=== PATIENT | male | born 1965 | race Caucasian/White ===

== ENCOUNTER 2018-11-06 19:02 | Emergency (ER) | payer OTHER, SELFPAY ==
[2018-11-06 19:05] VITALS: BP 115/80; PULSE 82; RESP 18; TEMP 36.4; O2SAT 99
[2018-11-06 19:28] VITALS: BP 115/80; PULSE 85; RESP 18; O2SAT 95
--- NOTE | 2018-11-06 19:33 | DI.RAD.S_ITS ---
PROCEDURE: XR CHEST 1V INDICATIONS: chest pain TECHNIQUE: One view of the chest was acquired. COMPARISON: None. FINDINGS: Surgical changes and devices: None. Lungs and pleura: Lungs are clear. No pleural effusions or pneumothorax. Mediastinum: Mediastinal contours appear normal. Heart size is normal. Bones and chest wall: No suspicious bony lesions. Overlying soft tissues appear unremarkable. IMPRESSION: No acute cardiopulmonary pathology. Dictated by: Christiano Bess M.D. on 11/06/2018 at 20:07 Approved by: Christiano Bess M.D. on 11/06/2018 at 20:08
[2018-11-06 19:38] LABS: Add Manual Diff / Slide Review NO; Basophils Absolute Auto 100 /uL (0-100); Basophils Percent Auto 1.4 % (0-2); Eosinophils Absolute Auto 500 /uL (0-450); Eosinophils Percent Auto 7.2 % (2-4); Hematocrit 44.9 % (41-53); Hemoglobin 15.5 g/dL (13.5-17.5); Lymphocytes Absolute Auto 2700 /uL (1100-4500); Lymphocytes Percent Auto 39.2 % (25-40); Mean Corpuscular HGB Conc 34.5 % (30-36); Mean Corpuscular Hemoglobin 30.2 PG (26-34); Mean Corpuscular Volume 87.5 fL (80-100); Monocytes Absolute Auto 500 /uL (0-900); Monocytes Percent Auto 7.4 % (3-14); Neutrophils Absolute Auto 3100 /uL (1500-7000); Neutrophils Percent Auto 44.8 % (50-75); Platelet Count 238 X10^3/uL (150-400); Red Blood Cell Count 5.13 X10^6/uL (4.5-5.9); Red Cell Distribution Width 12.8 % (11.6-14.8); White Blood Cell Count 6.8 X10^3/uL (4.5-11.0)
[2018-11-06 19:40] LABS: Prothrombin Time 11.6 SECONDS (10.1-12.7)
[2018-11-06 19:42] LABS: PTT Partial Thromboplastin Tim 35 SECONDS (26.4-36.2)
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
[2018-11-06 19:44] LABS: Alanine Aminotransferase 29 IU/L (21-72); Albumin 4.6 g/dL (3.5-5.0); Albumin Globulin Ratio 1.4 (1.0-2.8); Alkaline Phosphatase 69 U/L (38-126); Aspartate Aminotransferase 28 IU/L (17-59); BUN Creatinine Ratio 22.2 (6-22); Bilirubin Total 1.1 mg/dL (0.2-1.3); Blood Urea Nitrogen 20 mg/dL (9-20); Calcium 9.6 mg/dL (8.4-10.2); Carbon Dioxide 30 mmol/L (22-32); Chloride 99 mmol/L (98-107); Creatine Kinase 85 U/L (55-170); Estimated Glomerular Filt Rate > 60.0 mL/min (>60); Globulin 3.3 g/dL (1.7-4.1); Glucose 95 mg/dL (70-100); HEMOLYSIS 41 (0-50); Lipase 79 U/L (23-300); Potassium 4.4 mmol/L (3.4-5.1); Sodium 139 mmol/L (137-145); Total Protein 7.9 g/dL (6.3-8.2)
[2018-11-06] MEDS: KETOROLAC 60 MG/2 ML VIAL 30 MG IV (19:53)
[2018-11-06] MEDS: ACETAMINOPHEN 325 MG TABLET 650 MG PO (19:53)
[2018-11-06 19:55] LABS: Troponin I < 0.012 ng/mL (0.01-0.034)
[2018-11-06 20:00] VITALS: BP 132/84; PULSE 73; RESP 14; O2SAT 96
--- NOTE | 2018-11-06 20:33 | DI.RAD.S_ITS ---
PROCEDURE: XR SHOULDER LT MIN 2V INDICATIONS: L shoulder pain TECHNIQUE: Pre-views of the shoulder were acquired. COMPARISON: None. FINDINGS: Bones: Mild to moderate acromioclavicular joint and glenohumeral joint osteoarthritis is seen. No fractures or dislocations. No suspicious bony lesions. Visualized ribs appear intact. Soft tissues: No suspicious soft tissue calcifications. IMPRESSION: Mild to moderate left shoulder joint osteoarthritis. No acute fracture or dislocation. Dictated by: Christiano Bess M.D. on 11/06/2018 at 21:01 Approved by: Christiano Bess M.D. on 11/06/2018 at 21:01
[2018-11-06 20:51] VITALS: BP 116/78; PULSE 71; O2SAT 96
[2018-11-06 21:00] VITALS: BP 112/78; PULSE 73; RESP 12; O2SAT 95
[2018-11-06 22:00] VITALS: BP 114/74; PULSE 69; RESP 13; O2SAT 96
[2018-11-06] MEDS: CYCLOBENZAPRINE 10 MG PREPACK 1 BOTTLE MISC (22:03)
== END 2018-11-06 22:29 | disposition home or self-care (01) ==
PROVIDERS: Emergency Provider Nurse Practitioner Family; Family Provider Family Medicine; PCP Family Medicine
DX: M79.602 Pain in left arm (principal); M54.9 Dorsalgia, unspecified; Z87.898 Personal history of other specified conditions
CPT/HCPCS: 36591; 71045; 73030; 80053; 82550; 83690; 84484; 85025; 85610; 85730; 93005; 96374; 99283; 99285; J1885

== ENCOUNTER → 2020-04-01 17:44 | Outpatient (CLI) | payer OTHER, SELFPAY ==
--- NOTE | 2020-04-02 | DI.RAD.S_ITS ---
PROCEDURE: XR BONE LENGTH SCANOGRAM INDICATIONS: Bone Length Study TECHNIQUE: A single frontal standing view of both lower extremities acquired, with measuring ruler situated between the legs. COMPARISON: None. FINDINGS: Right: Total leg length is 83.5 cm. Left: Total leg length is 84.6 cm. IMPRESSION: Left leangth as measured. Dictated by: Antonio Hamlin M.D. on 04/03/2020 at 8:52 Approved by: Antonio Hamlin M.D. on 04/03/2020 at 8:56
== END ==
PROVIDERS: Family Provider Family Medicine; PCP Family Medicine; Referring Provider Family Medicine; Visit Provider Family Medicine
DX: M21.769 Unequal limb length (acquired), unspecified tibia and fibula (principal)

== ENCOUNTER → 2020-04-02 17:47 | Outpatient (CLI) | payer OTHER, SELFPAY ==
--- NOTE | 2020-04-02 18:03 | DI.RAD.S_ITS ---
This report includes an Addendum and supersedes previous reports for this exam. PROCEDURE: XR BONE LENGTH SCANOGRAM INDICATIONS: Bone Length Study TECHNIQUE: A single frontal standing view of both lower extremities acquired, with measuring ruler situated between the legs. COMPARISON: None. FINDINGS: Right: Total leg length is 83.5 cm. Left: Total leg length is 84.6 cm. IMPRESSION: Leg length as measured. Dictated by: Antonio Hamlin M.D. on 04/03/2020 at 8:52 Approved by: Antonio Hamlin M.D. on 04/03/2020 at 8:56 ADDENDUM: Typograophic error(s) corrected (underlined). Dictated by: Antonio Hamlin M.D. on 04/03/2020 at 9:15 Approved by: Antonio Hamlin M.D. on 04/03/2020 at 9:16
== END ==
PROVIDERS: Family Provider Family Medicine; PCP Family Medicine; Referring Provider Family Medicine; Visit Provider Family Medicine
DX: M21.769 Unequal limb length (acquired), unspecified tibia and fibula (principal)
CPT/HCPCS: 77073

== ENCOUNTER 2023-03-23 08:15 | Outpatient (RCR) | payer OTHER, SELFPAY ==
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
--- NOTE | 2023-02-23 16:22 | PT.OPPOC ---
Physical, Occupational & Speech Therapy At [facility] Current Diagnoses Lesion of sciatic nerve, right lower limb (02/23/23) Stiffness of unspecified hip, not elsewhere classified (02/23/23) Other spondylosis, lumbar region (02/23/23) Visit Care Team Role Provider Type Juan Corey MD Attending Provider Non-Staff Family Provider Primary Care Provider Referring Provider Specialty: Internal Medicine Address: [address] [place], [place] [address], [place], [address] Email: Plan Of Care PT-OP-T Assessment and Plan Start: 02/23/23 07:59 Freq: Status: Active Protocol: Document 02/23/23 08:45 [facility] (Rec: 02/23/23 13:15 [facility] [id number]) Physical Therapy Assessment Rehab Potential Rehabilitation Potential Good Evaluation Complexity Number of Personal Factors/Comorbidities 0 Number of Body Systems Impaired 1-2 Clinical Presentation at Evaluation Stable Impairments Impairments Activity Tolerance,Functional Activities,Functional Mobility ,Pain,Posture,ROM,Soft Tissue Mobility,Strength Goals 3 Impairment Pt lacks a home program for iliopsoas, adductor, and quad flexibility Short Term Goal (STG) Ravi is educated in a HEP for iliopsoas, adductor, and quad flexibility STG Duration 4 weeks 2 Impairment + Steve test on the right and c/o right sided sacral pain with prone knee flexion test Case Manager Goal (LTG) With manual therapy techniques and stretching Ravi presents with a negative steve test and no longer has pain with prone knee flexion test LTG Duration 8 weeks 1 Impairment pain at the right ischium made worse with sitting and across the low back rated 6/10 Shelter Goal (LTG) Ravi has a overall reduction in pain in both the low back and ischium and sitting tolerance is improved LTG Duration 8 weeks Assessment Summary Assessment Ravi is a 57 year old male referred to PT with 6 year history of right sided buttock pain that came on with an insidious onset approx 5-6 years ago. He notes pain at the right ischium that comes on with sitting. Once his pain is aggravated it will then include his low back. He notes recently he is experiencing low back discomfort at night when trying to sleep. He has tried previous PT and has had approx 7 spinal and SI injections. He has not gotten any relief with any of these. With evaluation I was not able to recreate any pain at the ischium and pt describes his pain as skin irritation as if he has gotten a rug burn when he experiences it. I was able to reproduce pain at the sacrum with right sided prone knee extension and steve test . He is positive for quad and iliopsoas and adductor tightness on the right and has a positive steve test on the right. He is much tighter on the right side as compared to the left side. There is tenderness to palpation at the right PSIS in prone and the base of the sacrum. It is possible his iliopsoas tightness is adding to compression in his back contributing to the referral of pain to the ischium. Without being able to reproduce his symptoms it is difficult to tell. Treatment at this time will focus on lengthening the iliopsoas, adductors, and quad on the right Physical Therapy Plan Frequency and Duration Frequency of Treatment 1x/Week Duration of treatment (weeks) 8 Plan of Care Start Date 02/23/23 Plan of Care End Date 04/20/23 Therapeutic Interventions Therapeutic Interventions Home Exercise Program,Joint Mobilizations,Manual Therapy, Neuromuscular Re-education, Self-Care/Home Management,Soft Tissue Mobilization, Therapeutic Exercises Next Visit Focus/Plan Next Note Type Treatment Note Next Visit Plan Begin working on iliopsoas and adductor release on the right side, review stretches given today Plan of Care Dates Plan of Care Start Date 02/23/23 Plan of Care End Date 04/20/23 Electronically Signed by: Kristal River, PT 02/24/23 [id number] If you are in agreement with this Plan of Care, please return a signed and dated copy. I have reviewed this Plan of Care and certify that the skilled therapy services above are required to meet the patient?s needs. Physician Signature Date Printed Name and Credentials Clinical Instructor Signature Printed Name and Credentials
--- NOTE | 2023-03-02 13:05 | PT.OTN ---
Current Diagnoses Lesion of sciatic nerve, right lower limb (03/02/23) Stiffness of unspecified hip, not elsewhere classified (03/02/23) Other spondylosis, lumbar region (03/02/23) Physical Therapy Treatment Note PT-OP-A Visit Information Start: 02/23/23 07:59 Freq: Status: Active Protocol: Document 03/02/23 08:15 [facility] (Rec: 03/02/23 09:04 [facility] [id number]) Out-Patient Physical Therapy Visit Information Visit Information Visit Type Treatment Note Visit Start Time 08:15 Visit Stop Time 09:00 Total Visit Minutes 45 Visit Number 2 PT-OP-B Current Condition Start: 02/23/23 07:59 Freq: Status: Active Protocol: Document 02/23/23 08:45 [facility] (Rec: 02/23/23 09:38 [facility] [id number]) Current Condition History of Current Condition Onset Date 5-6 year ago Current Complaints pain with sitting at the right sitting bone, pain now with sleeping History of Current Condition ongoing pain right piriformis x 5 years, 7 different injections and nothing helps. Pain is at the sitting bone. Years ago he fell on his tail bone but he doesn't think this has had anything to do with current pain. Ravi reports pain came on with insidious onset but it started getting very uncomfortable sitting and he is always leaning to the left side, its gotten worse to when its irritated alot when he experiences pain at the belt line across his low back. He then notes that when laying on his back her cant get comfortable. 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 The only thing he notes with his pelvic floor is that he doesn't have a strong stream of urine. He denies any other pelvic pain or pain with voiding or bowel movements or intercourse. Ravi reports if he is moving he is fine but if he stands for a long time he may start feeling it in the low back. Treatment Goals Patient/Caregiver Goals Pt's goals include eliminating his pain especially with sitting on the right ischium Current Functional Impairments (Reported) Functional Limitations- ADL's Ravi is limited with his sitting ability due to pain on the right ischium this then does progress to pain in the lower back and standing can get uncomfortable as well PT-OP-C Subjective Start: 02/23/23 07:59 Freq: Status: Active Protocol: Document 03/02/23 08:15 [facility] (Rec: 03/02/23 09:04 [facility] [id number]) OP-PT Subjective Patient Comments Patient Comments pt notes he did his exercise and did not experience any radicular symptoms with exercises but no change in symptoms Patient Reported Progress Same PT-OP-F Manual Assessment Start: 02/23/23 11:13 Freq: Status: Active Protocol: Document 02/23/23 08:45 [facility] (Rec: 02/23/23 11:14 [facility] [id number]) Manual Assessments Soft Tissue Assessment Soft Tissue Mobility Assessment right adductor spasm and guarding at the proximal attachment to the pubic bone right ilipsoas tightness and guarding PT-OP-K Range of Motion Start: 02/23/23 07:59 Freq: Status: Active Protocol: Document 02/23/23 08:45 [facility] (Rec: 02/24/23 16:19 [facility] [id number]) Lumbar Spine Range of Motion Lumbar Spine Active Extension 5 ROM Limitations Soft Tissue Tightness,Pain Comments increased pain with lumbar extension Hip Goniometric Range of Motion Hip Right Hip ROM WFL No Straight Leg Raise 40 Extension 0 Comments pt lacks hip extension and has difficulty getting right hip to neutral due to iliopsoas guarding and tightness Hip ROM Limitations Hip ROM Limitations Soft Tissue Tightness PT-OP-L Special Tests Start: 02/23/23 07:59 Freq: Status: Active Protocol: Document 02/23/23 08:45 [facility] (Rec: 02/23/23 11:05 [facility] [id number]) Special Tests Hip Special Tests Steve Test Results + on the right side Comments + right side only PT-OP-Q Treatments Start: 02/23/23 07:59 Freq: Status: Active Protocol: Document 03/02/23 08:15 [facility] (Rec: 03/02/23 09:04 [facility] [id number]) Therapeutic Exercises Supine Exercises wind shield wipers Reps/Minutes x 15 reps adductor stretch with strap Supine Exercise Name HELD as pt was not feeling any stretch iliopsoas stretch in steve test position Side right Reps/Minutes pt instructed to hold 1-2 min on the right leg Standing Exercises standing sidebend stretch against the wall Reps/Minutes x 4 reps alternating sides holding 30 sec each Other Exercises seatedV stretch Reps/Minutes hold 1-2 min quadratus lumborum stretch Other Exercise Name trial of sidelying QL stretch but pt did not tolerate well so will hold off Manual Therapy Treatment Manual Techniques manual hip extension and knee flexion Comments worked on the right side with pt in a left sidelying position, working on hip extension and quad stretch with knee bent iliopsoas release Body Position Supine Comments worked both in sidelying as well as supine to help release the iliopsoas manual QL release on the right side Type MFR Body Location right QL Body Position Sidelying Comments tightness in the right QL noted as compared to the left PT-OP-T Assessment and Plan Start: 02/23/23 07:59 Freq: Status: Active Protocol: Document 03/02/23 08:15 [facility] (Rec: 03/02/23 13:05 [facility] [id number]) Physical Therapy Assessment Assessment Summary Assessment Ravi is tight and guarded in the QL on the right side along with the iliopsoas right. He did tolerate steve test position better today and tolerated work on his right QL . He has a torn rotator cuff on the right side as well making it difficult to lift the right arm overhead for stretches. He is scheduled for RC surgery 03/09/23 and has a pt appt the day before Physical Therapy Plan Frequency and Duration Frequency of Treatment 1x/Week Duration of treatment (weeks) 8 Plan of Care Start Date 02/23/23 Plan of Care End Date 04/20/23 Therapeutic Interventions Therapeutic Interventions Home Exercise Program,Joint Mobilizations,Manual Therapy, Neuromuscular Re-education, Self-Care/Home Management,Soft Tissue Mobilization, Therapeutic Exercises Next Visit Focus/Plan Next Note Type Treatment Note Next Visit Plan continue with stretches to help open up the low back and hips and manual work for adductors, iliopsoas and QL
--- NOTE | 2023-03-08 13:24 | PT.OTN ---
Current Diagnoses Lesion of sciatic nerve, right lower limb (03/08/23) Stiffness of unspecified hip, not elsewhere classified (03/08/23) Other spondylosis, lumbar region (03/08/23) Physical Therapy Treatment Note PT-OP-A Visit Information Start: 02/23/23 07:59 Freq: Status: Active Protocol: Document 03/08/23 09:00 [facility] (Rec: 03/08/23 13:21 [facility] [id number]) Out-Patient Physical Therapy Visit Information Visit Information Visit Type Treatment Note Visit Start Time 09:00 Visit Stop Time 09:45 Total Visit Minutes 45 Visit Number 3 PT-OP-B Current Condition Start: 02/23/23 07:59 Freq: Status: Active Protocol: Document 02/23/23 08:45 [facility] (Rec: 02/23/23 09:38 [facility] [id number]) Current Condition History of Current Condition Onset Date 5-6 year ago Current Complaints pain with sitting at the right sitting bone, pain now with sleeping History of Current Condition ongoing pain right piriformis x 5 years, 7 different injections and nothing helps. Pain is at the sitting bone. Years ago he fell on his tail bone but he doesn't think this has had anything to do with current pain. Ravi reports pain came on with insidious onset but it started getting very uncomfortable sitting and he is always leaning to the left side, its gotten worse to when its irritated alot when he experiences pain at the belt line across his low back. He then notes that when laying on his back her cant get comfortable. 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 The only thing he notes with his pelvic floor is that he doesn't have a strong stream of urine. He denies any other pelvic pain or pain with voiding or bowel movements or intercourse. Ravi reports if he is moving he is fine but if he stands for a long time he may start feeling it in the low back. Treatment Goals Patient/Caregiver Goals Pt's goals include eliminating his pain especially with sitting on the right ischium Current Functional Impairments (Reported) Functional Limitations- ADL's Ravi is limited with his sitting ability due to pain on the right ischium this then does progress to pain in the lower back and standing can get uncomfortable as well PT-OP-C Subjective Start: 02/23/23 07:59 Freq: Status: Active Protocol: Document 03/08/23 09:00 [facility] (Rec: 03/08/23 09:51 [facility] [id number]) OP-PT Subjective Patient Comments Patient Comments pt notes his pain is a little worse this week but he had to get ready for surgery PT-OP-F Manual Assessment Start: 02/23/23 11:13 Freq: Status: Active Protocol: Document 02/23/23 08:45 [facility] (Rec: 02/23/23 11:14 [facility] [id number]) Manual Assessments Soft Tissue Assessment Soft Tissue Mobility Assessment right adductor spasm and guarding at the proximal attachment to the pubic bone right ilipsoas tightness and guarding PT-OP-K Range of Motion Start: 02/23/23 07:59 Freq: Status: Active Protocol: Document 02/23/23 08:45 [facility] (Rec: 02/24/23 16:19 [facility] [id number]) Lumbar Spine Range of Motion Lumbar Spine Active Extension 5 ROM Limitations Soft Tissue Tightness,Pain Comments increased pain with lumbar extension Hip Goniometric Range of Motion Hip Right Hip ROM WFL No Straight Leg Raise 40 Extension 0 Comments pt lacks hip extension and has difficulty getting right hip to neutral due to iliopsoas guarding and tightness Hip ROM Limitations Hip ROM Limitations Soft Tissue Tightness PT-OP-L Special Tests Start: 02/23/23 07:59 Freq: Status: Active Protocol: Document 02/23/23 08:45 [facility] (Rec: 02/23/23 11:05 [facility] [id number]) Special Tests Hip Special Tests Steve Test Results + on the right side Comments + right side only PT-OP-Q Treatments Start: 02/23/23 07:59 Freq: Status: Active Protocol: Document 03/08/23 09:00 [facility] (Rec: 03/08/23 09:51 [facility] [id number]) Therapeutic Exercises Supine Exercises wind shield wipers Reps/Minutes x 15 reps iliopsoas stretch in steve test position Side right Reps/Minutes pt instructed to hold 1-2 min on the right leg Standing Exercises standing sidebend stretch against the wall Reps/Minutes x 4 reps alternating sides holding 30 sec each Other Exercises seatedV stretch Reps/Minutes hold 1-2 min Manual Therapy Treatment Manual Techniques sacral decompression technique Comments MET for sacral counternutation to decompress L5-S1 5 reps prone knee flexion Reps/Duration hold 30 sec x 3 Comments with pillow under the abdomen iliopsoas release Body Position Supine Comments worked both in sidelying as well as supine to help release the iliopsoas manual QL release on the right side Type MFR Body Location right QL Body Position Sidelying Comments tightness in the right QL noted as compared to the left PT-OP-T Assessment and Plan Start: 02/23/23 07:59 Freq: Status: Active Protocol: Document 03/08/23 09:00 [facility] (Rec: 03/08/23 13:21 [facility] [id number]) Physical Therapy Assessment Assessment Summary Assessment I worked today on opening up the QL on the right, releasing the ilipsoas on the right and reviewing exercises that were established. Ravi will go in for rotator cuff repair on the right shoulder tomorrow and he has a follow up att here for therapy in a week. We may need to ajust his exercises Physical Therapy Plan Frequency and Duration Frequency of Treatment 1x/Week Duration of treatment (weeks) 8 Plan of Care Start Date 02/23/23 Plan of Care End Date 04/20/23 Therapeutic Interventions Therapeutic Interventions Home Exercise Program,Joint Mobilizations,Manual Therapy, Neuromuscular Re-education, Self-Care/Home Management,Soft Tissue Mobilization, Therapeutic Exercises Next Visit Focus/Plan Next Note Type Treatment Note Next Visit Plan continue with stretches to help open up the low back and hips and manual work for adductors, iliopsoas and QL
--- NOTE | 2023-03-23 10:26 | PT.OTN ---
Current Diagnoses Lesion of sciatic nerve, right lower limb (03/23/23) Stiffness of unspecified hip, not elsewhere classified (03/23/23) Other spondylosis, lumbar region (03/23/23) Physical Therapy Treatment Note PT-OP-A Visit Information Start: 02/23/23 07:59 Freq: Status: Active Protocol: Document 03/23/23 08:13 [facility] (Rec: 03/23/23 09:05 [facility] [id number]) Out-Patient Physical Therapy Visit Information Visit Information Visit Type Treatment Note Visit Start Time 08:15 Visit Stop Time 09:00 Total Visit Minutes 45 Visit Number 4 PT-OP-B Current Condition Start: 02/23/23 07:59 Freq: Status: Active Protocol: Document 02/23/23 08:45 [facility] (Rec: 02/23/23 09:38 [facility] [id number]) Current Condition History of Current Condition Onset Date 5-6 year ago Current Complaints pain with sitting at the right sitting bone, pain now with sleeping History of Current Condition ongoing pain right piriformis x 5 years, 7 different injections and nothing helps. Pain is at the sitting bone. Years ago he fell on his tail bone but he doesn't think this has had anything to do with current pain. Ravi reports pain came on with insidious onset but it started getting very uncomfortable sitting and he is always leaning to the left side, its gotten worse to when its irritated alot when he experiences pain at the belt line across his low back. He then notes that when laying on his back her cant get comfortable. 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 The only thing he notes with his pelvic floor is that he doesn't have a strong stream of urine. He denies any other pelvic pain or pain with voiding or bowel movements or intercourse. Ravi reports if he is moving he is fine but if he stands for a long time he may start feeling it in the low back. Treatment Goals Patient/Caregiver Goals Pt's goals include eliminating his pain especially with sitting on the right ischium Current Functional Impairments (Reported) Functional Limitations- ADL's Ravi is limited with his sitting ability due to pain on the right ischium this then does progress to pain in the lower back and standing can get uncomfortable as well PT-OP-C Subjective Start: 02/23/23 07:59 Freq: Status: Active Protocol: Document 03/23/23 08:13 [facility] (Rec: 03/23/23 09:05 [facility] [id number]) OP-PT Subjective Patient Comments Patient Comments pt returns to PT after his rotator cuff surgery and will be in a sling x 12 weeks PT-OP-F Manual Assessment Start: 02/23/23 11:13 Freq: Status: Active Protocol: Document 02/23/23 08:45 [facility] (Rec: 02/23/23 11:14 [facility] [id number]) Manual Assessments Soft Tissue Assessment Soft Tissue Mobility Assessment right adductor spasm and guarding at the proximal attachment to the pubic bone right ilipsoas tightness and guarding PT-OP-K Range of Motion Start: 02/23/23 07:59 Freq: Status: Active Protocol: Document 02/23/23 08:45 [facility] (Rec: 02/24/23 16:19 [facility] [id number]) Lumbar Spine Range of Motion Lumbar Spine Active Extension 5 ROM Limitations Soft Tissue Tightness,Pain Comments increased pain with lumbar extension Hip Goniometric Range of Motion Hip Right Hip ROM WFL No Straight Leg Raise 40 Extension 0 Comments pt lacks hip extension and has difficulty getting right hip to neutral due to iliopsoas guarding and tightness Hip ROM Limitations Hip ROM Limitations Soft Tissue Tightness PT-OP-L Special Tests Start: 02/23/23 07:59 Freq: Status: Active Protocol: Document 02/23/23 08:45 [facility] (Rec: 02/23/23 11:05 [facility] [id number]) Special Tests Hip Special Tests Steve Test Results + on the right side Comments + right side only PT-OP-Q Treatments Start: 02/23/23 07:59 Freq: Status: Active Protocol: Document 03/23/23 08:15 [facility] (Rec: 03/23/23 10:26 [facility] [id number]) Manual Therapy Treatment Soft Tissue Mobilization MFR of the quad Comments MFR of the right quad in sidelying with manual stretch Manual Techniques MET for right anterior innominant Reps/Duration x 5 reps Comments good tolerance manual hip extension and knee flexion Comments worked on the right side with pt in a left sidelying position, working on hip extension and quad stretch with knee bent. Hip extension still causes c/o LBP, pt needs increased hip extension iliopsoas release Body Position Supine Comments worked both in sidelying as well as supine to help release the iliopsoas manual QL release on the right side Type MFR Body Location right QL Body Position Sidelying Comments tightness in the right QL noted as compared to the left PT-OP-T Assessment and Plan Start: 02/23/23 07:59 Freq: Status: Active Protocol: Document 03/23/23 08:15 [facility] (Rec: 03/23/23 10:26 [facility] [id number]) Physical Therapy Assessment Goals 3 Impairment Pt lacks a home program for iliopsoas, adductor, and quad flexibility Short Term Goal (STG) Ravi is educated in a HEP for iliopsoas, adductor, and quad flexibility GOAL MET STG Duration 4 weeks 2 Impairment + Steve test on the right and c/o right sided sacral pain with prone knee flexion test Microbiology Professor Goal (LTG) With manual therapy techniques and stretching Ravi presents with a negative steve test and no longer has pain with prone knee flexion test NO change and unable to test due to rotator cuff surgery LTG Duration 8 weeks 1 Impairment pain at the right ischium made worse with sitting and across the low back rated 6/10 Microbiology Professor Goal (LTG) Ravi has a overall reduction in pain in both the low back and ischium and sitting tolerance is improved No change LTG Duration 8 weeks Assessment Summary Assessment Ravi's symptoms seem like a referral from his low back to me. He is quite tight in QL and iliopsoas and right side of pelvis is elevated as compared to the right. Due to recent rotator cuff surgery and arm in a sling he is limited on what exercises he can do. We talked about pelvis decompression with his legs in a 90/90 position as well as left sidelying over a bolster to open up the right side of his sidebody. He also needs to work on hip extension without low back extension as any hip extension creates compression in his low back. At this point he would like to hold off on PT for his back as he is recovering from his shoulder and will be having PT for his shoulder. I would be happy to resume treatment for him again in the future. Physical Therapy Plan Discharge Physical Therapy Discharge Reasons Change in Medical Status Discharge Comments due to recent rotator cuff repair and the need to have PT for his shoulder he is DC PT for his back and ischium at this time
== END 2023-03-23 10:36 | disposition home or self-care (01) ==
LOC: PHYS 08:15
PROVIDERS: Family Provider Internal Medicine; PCP Internal Medicine; Referring Provider Internal Medicine; Visit Provider Internal Medicine
DX: G57.01 Lesion of sciatic nerve, right lower limb (principal); M47.896 Other spondylosis, lumbar region; M25.659 Stiffness of unspecified hip, not elsewhere classified
CPT/HCPCS: 97110; 97140; 97161